=== PATIENT | male | born 1965 | race Caucasian/White ===

== ENCOUNTER 2018-01-03 12:01 | Emergency (ER) | payer OTHER ==
[2018-01-03 12:10] VITALS: BP 138/67; BMI 47.5
--- NOTE | 2018-01-03 13:45 | DR.GENAD ---
HPI - PCP Primary Care Physician: none - Complaint/Symptoms Chief Complaint Doctors Comments: Patient admits to having cellulitis a few weeks ago treated with clindamycin has not cleared. He denies fever, or vomiting. Chief Complaint:: "redness in abdomen and hurting and it's hard" full tummy tuck done 6 years ago and I think it's from that". - Source History Provided: Patient - Mode of Arrival Mode of Arrival: Ambulatory - Timing Onset of Chief Complaint: 10/10/17 PMH - PMH Past Medical History: No Past Surgical History: Yes Past Surgical History Comment: tummy tuck, right and left shoulder - Family History History of Family Medical Conditions: No - Social History Does patient currently use any type of tobacco product: No Have you used tobacco products in the last 12 months: No Type of Tobacco Use: None Does any household member use tobacco: No Alcohol Use: None Do you use any recreational Drugs:: No Lives With: Family Lives Where: Home - infectious screening In the last 2 months have you had wt loss of >10#?: NO Have you had fever, night sweats or hemotysis?: No Have you traveled outside the country in the last 6 months?: No Isolation: Standard ROS - Review of Systems Eyes: No Symptoms Reported ENTM: No Symptoms Reported Respiratoy: No Symptoms Reported Cardiovascular: No Symptoms Reported Gastrointestinal/Abdominal: Abdominal Pain. negative: Vomiting Genitourinary: No Symptoms Reported Neurological: No Symptoms Reported Musculoskeletal: No Symptoms Reported Integumentary: No Symptoms Reported Hematologic/Lymphatic: No Symptoms Reported Endocrine: No Symptoms Reported All Other Systems: Reviewed and Negative PE - Vital Signs Vitals: Temperature 98.7 F Pulse Rate 100 Respiratory Rate 18 Blood Pressure 138/67 O2 Sat by Pulse Oximetry 100 - General Limitations: No Limitations General Appearance: Alert, In No Apparent Distress - Head Head Exam: Normal Inspection, Atraumatic - Eyes Eye exam: Normal Appearance, PERRL, EOMI - ENT ENT Exam: Normal Exam External Ear Exam: Normal External Inspection TM/Canal Exam: Bilateral Normal Nose Exam: Normal Nose Exam Mouth Exam: Normal Inspection Throat Exam: Normal Inspection - Neck Neck Exam: Normal Inspection - Chest Chest Inspection: Normal Inspection - Respiratory Respiratory Exam: Normal Lung Sounds Bilat Respiratory Exam: Bilateral Clear to Auscultation - Cardiovascular Cardiovascular Exam: Regular Rate, Normal Rhythm - Abdominal Exam Abdominal Exam: Normal Inspection, Normal Bowel Sounds Abdominal Tenderness: RUQ (area of erythema non violacious, non tender) - Extremities Extremities Exam: Normal Inspection - Back Back Exam: Normal Inspection, Full ROM - Neurologic Neurological Exam: Alert, Oriented X3, CN II-XII Intact - Psychiatric Psychiatric Exam: Normal Affect - Skin Skin Exam: Warm, Dry, Intact Course - Reevaluation 1st: Unchanged ROR - Labs Reviewed Result Diagrams: 01/03/18 14:10 01/03/18 14:10 Laboratory: WBC 10.3 X10^3/uL (3.6-10.0) H 01/03/18 14:10 RBC 4.94 X10^6/uL (4.7-6.0) 01/03/18 14:10 Hgb 13.5 g/dL (13.5-18.0) 01/03/18 14:10 Hct 39.1 % (42.0-54.0) L 01/03/18 14:10 MCV 79.2 fL (80.0-100.0) L 01/03/18 14:10 MCH 27.3 pg (27.0-34.0) 01/03/18 14:10 MCHC 34.4 g/dL (33.0-35.0) 01/03/18 14:10 RDW 15.3 % (11.6-16.5) 01/03/18 14:10 Plt Count 142 X10^3/uL (150.0-450.0) L 01/03/18 14:10 MPV 8.6 fL (7.4-11.0) 01/03/18 14:10 Neut % (Auto) 89.2 % (42.0-75.0) H 01/03/18 14:10 Lymph % (Auto) 4.9 % (21.0-51.0) L 01/03/18 14:10 Borden % (Auto) 5.7 % (0.0-13.0) 01/03/18 14:10 Eos % (Auto) 0.0 % (0.9-2.9) L 01/03/18 14:10 Baso % (Auto) 0.2 % (0.2-1.0) 01/03/18 14:10 Neut # (Auto) 9.2 x10^3/uL (2.2-4.8) H 01/03/18 14:10 Lymph # (Auto) 0.5 X10^3/uL (1.3-2.9) L 01/03/18 14:10 Borden # (Auto) 0.6 x10^3/uL (0.3-0.8) 01/03/18 14:10 Eos # (Auto) 0.0 x10^3/uL (0.0-0.2) 01/03/18 14:10 Baso # (Auto) 0.0 X10^3/uL (0.0-0.1) 01/03/18 14:10 Absolute Nucleated RBC 0.0 /100WBC 01/03/18 14:10 Sodium 140 mmol/L (136-145) 01/03/18 14:10 Corrected Sodium TNP 01/03/18 14:10 Potassium 3.9 mmol/L (3.5-5.1) 01/03/18 14:10 Chloride 104 mmol/L (98-107) 01/03/18 14:10 Carbon Dioxide 24.4 mmol/L (21-32) 01/03/18 14:10 BUN 11 mg/dL (7-18) 01/03/18 14:10 Creatinine 1.09 mg/dL (0.70-1.30) 01/03/18 14:10 Est GFR (MDRD) Af Amer > 60 (>60) 01/03/18 14:10 Est GFR (MDRD) Non-Af > 60 (>60) 01/03/18 14:10 Glucose 110 mg/dL (65-99) H 01/03/18 14:10 Calcium 7.8 mg/dL (8.5-10.1) L 01/03/18 14:10 Corrected Calcium TNP 01/03/18 14:10 Total Bilirubin 0.80 mg/dL (0.2-1.0) 01/03/18 14:10 AST 19 Units/L (15-37) 01/03/18 14:10 ALT 30 Units/L (12-78) 01/03/18 14:10 Alkaline Phosphatase 62 Units/L (46-116) 01/03/18 14:10 C-Reactive Protein 113.50 mg/L (0-3.0) H 01/03/18 14:10 Total Protein 7.4 g/dL (6.4-8.2) 01/03/18 14:10 Albumin 3.8 g/dL (3.4-5.0) 01/03/18 14:10 Globulin 3.6 g/dL (2.5-4.5) 01/03/18 14:10 Albumin/Globulin Ratio 1.1 Ratio (1.1-2.1) 01/03/18 14:10 - XRAY XRAY Interpreted by: Radiologist (CT Abd/Pel with contrast: No significant vascular plaque noted. Solid organs are poorly enhanced dated delayed phase, but within the limits of the study, the liver, wspleen, adrenal glands and pancreas are normal. The gallbladder is absent. 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 The appendix is normal. Hazy mid abdominal mesenteries shotty lymp nodes noted. Pelvis: The urinary bladder, rectum and postate gland are normal.) - Diagnosis Discharge Problem: Nonspecific mesenteric adenitis Cellulitis Qualifiers: Site of cellulitis of trunk: abdominal wall - Discharge Plan Condition: Stable - Follow ups/Referrals Follow ups/Referrals: NFD,None [Primary Care Provider] - 3 days - Instructions
[2018-01-03 14:26] LABS: BASOPHILS % (AUTO) 0.2 % (0.2-1.0); HEMATOCRIT 39.1 % (42.0-54.0); HEMOGLOBIN 13.5 g/dL (13.5-18.0); LYMPHOCYTES # (AUTO) 0.5 X10^3/uL (1.3-2.9); LYMPHOCYTES % (AUTO) 4.9 % (21.0-51.0); MEAN CORPUSCULAR HEMOGLOBIN 27.3 pg (27.0-34.0); MEAN CORPUSCULAR HGB CONC 34.4 g/dL (33.0-35.0); MEAN CORPUSCULAR VOLUME 79.2 fL (80.0-100.0); MEAN PLATELET VOLUME 8.6 fL (7.4-11.0); MONOCYTES # (AUTO) 0.6 x10^3/uL (0.3-0.8); MONOCYTES % (AUTO) 5.7 % (0.0-13.0); NEUTROPHILS # (AUTO) 9.2 x10^3/uL (2.2-4.8); NEUTROPHILS % (AUTO) 89.2 % (42.0-75.0); PLATELET COUNT 142 X10^3/uL (150.0-450.0); RED BLOOD COUNT 4.94 X10^6/uL (4.7-6.0); RED CELL DISTRIBUTION WIDTH 15.3 % (11.6-16.5); WHITE BLOOD COUNT 10.3 X10^3/uL (3.6-10.0)
[2018-01-03] MEDS ORDERED: CLEOCIN 300 MG IV PREMIX 300 MG/50 ML BAG IV ONE ×2 (14:33→15:05)
[2018-01-03] MEDS ORDERED: CLEOCIN 600 MG IV PREMIX 600 MG/50 ML BAG IV ONE (14:34)
[2018-01-03 14:37] LABS: ALANINE AMINOTRANSFERASE 30 Units/L (12-78); ALBUMIN 3.8 g/dL (3.4-5.0); ALKALINE PHOSPHATASE 62 Units/L (46-116); ASPARTATE AMINO TRANSFERASE 19 Units/L (15-37); BLOOD UREA NITROGEN 11 mg/dL (7-18); CALCIUM 7.8 mg/dL (8.5-10.1); CARBON DIOXIDE 24.4 mmol/L (21-32); CHLORIDE 104 mmol/L (98-107); CREATININE 1.09 mg/dL (0.70-1.30); SODIUM 140 mmol/L (136-145); TOTAL PROTEIN 7.4 g/dL (6.4-8.2); eGFR BLACK RACES > 60 (>60); eGFR NON BLACK RACES > 60 (>60)
[2018-01-03] MEDS ORDERED: CLEOCIN VIAL 600 MG ONE (15:06)
[2018-01-03] MEDS ORDERED: NS 100 ML IV 100 ML IV ONE (15:08)
[2018-01-03] MEDS ORDERED: MORPHINE SULFATE INJ 4 MG IVP ONE (16:56)
[2018-01-03] MEDS ORDERED: MORPHINE SULFATE INJ 4 MG ONE (16:58)
--- NOTE | 2018-01-03 18:31 | CT ---
CT abdomen and pelvis with contrast Indication: Abdominal pain. Technique: Helical images through the abdomen and pelvis after IV contrast. Coronal and sagittal refo rmats provided. Note: CT scan was performed during delayed phase due to scanner malfunction. Findings: Limited images through the lower chest demonstrate no unexpected abnormality. Review of bon e windows shows minimal spine degenerative change without destructive osseous lesion. Abdomen: Kidneys excrete contrast normally on this delayed phase study without evidence of obstructio n. Retro aortic left renal vein noted. No significant vascular plaque noted. Solid organs are poorly enhanced dated delayed phase, but within the limits of the study, the liver, spleen, adrenal glands a nd pancreas are normal. The gallbladder is absent. There is post gastric bypass changes with normal s tomach, small bowel and colon otherwise. The appendix is normal. Hazy mid abdominal mesenteries shott y lymph nodes noted. Pelvis: The urinary bladder, rectum and prostate gland are normal. Impression: 1. Hazy mid abdominal mesenteries shotty lymph nodes is nonspecific. Mesenteric adenitis is possible . 2. No acute abnormality, within the limits of the exam as above given bolus timing issues. Reported By:
== END 2018-01-03 19:30 | disposition home or self-care (01) ==
LOC: ER 12:28
DX: L03.311 Cellulitis of abdominal wall (principal); I88.0 Nonspecific mesenteric lymphadenitis
CPT/HCPCS: 36415; 74177; 80053; 85025; 86140; 87040; 96365; 96374; 96375; 99283; A4222; S0077; J2270